=== PATIENT | female | born 1940 | race African-American/Black ===

== ENCOUNTER 2017-11-07 10:16 | Emergency (ER) | payer OTHER ==
[2017-11-07 10:30] VITALS: BP 124/74; PULSE 83; TEMP 98.3; BMI 23.1
[2017-11-07] MEDS ORDERED: predniSONE 20 MG TABLET (UD) PO ONE (10:42)
[2017-11-07] MEDS ORDERED: predniSONE 20 MG TABLET (UD) ONE (10:49)
--- NOTE | 2017-11-07 10:49 | PDOC ---
History of Present Illness - General Chief Complaint: Bite Stated Complaint: BEE STING History Source: Patient Exam Limitations: No Limitations - History of Present Illness Initial Comments: 11/07/17 10:43 77-year-old female presents to ED status post multiple bee stings to left foot and bilateral arms last week still with mild edema and discomfort. Patient states it is not bleeding for the pain and daughter decided to bring her here for further evaluation. Patient denies difficulty ambulating, fever, chills, itching or difficulty breathing. Timing/Duration: reports: week Severity: Yes: mild Location: reports: feet Respiratory Risk Factors: reports: insect bite Associated Symptoms: reports: swelling/mass/lumps Past History - Travel Traveled outside of the country in the last 30 days: No - Past Medical History Allergies/Adverse Reactions: Allergies Allergy/AdvReac Type Severity Reaction Status Date / Time No Known Allergies Allergy Verified 11/07/17 10:25 Home Medications: Ambulatory Orders NK [No Known Home Medication] 11/07/17 COPD: No DVT: No HTN: Yes Hypercholesterolemia: Yes - Suicide/Smoking/Psychosocial Hx Smoking History: Never smoked Patient Lives Alone: No Review of Systems - Review of Systems Able to Perform ROS?: No Constitutional: No: Symptoms Reported Integumentary: Yes: Other Neurological: No: Symptoms reported Endocrine: No: Symptoms Reported Hematologic/Lymphatic: No: Symptoms Reported *Physical Exam - Vital Signs Last Vital Signs Temp Pulse Resp BP Pulse Ox 98.3 F 83 19 124/74 97 11/07/17 10:26 11/07/17 10:26 11/07/17 10:26 11/07/17 10:26 11/07/17 10:26 - Physical Exam General Appearance: Yes: Nourished, Appropriately Dressed. No: Apparent Distress Vascular Pulses: Doralis-Pedis (L): 2+ Extremity: positive: Normal Capillary Refill, Normal Inspection, Normal Range of Motion, Tender (lateral aspect of left ankle), Swelling (mild 1+ pitting left ankle) Integumentary: positive: Normal Color, Warm, Other (no nicolas embeeded in skin) Neurologic: positive: Motor Strength 5/5 (ambulatory) Medical Decision Making - Medical Decision Making 11/07/17 10:47 Patient here after sustaining multiple bee stings to body last week while in the guarding. Patient states mild swelling to her left ankle has subsided moderately but continues. Patient without mild edema to the left ankle. Patient ordered for prednisone will be discharged home with 2 days of prednisone for the inflammation and toxic effect of bee stings. *DC/Admit/Observation/Transfer Diagnosis at time of Disposition: Bee sting reaction - Discharge Dispostion Disposition: HOME Condition at time of disposition: Good - Referrals Referrals: rDe De La Torre [Primary Care Provider] - - Patient Instructions Printed Discharge Instructions: DI for Insect Bites and Stings Additional Instructions: Take prednisone for the next 2 days starting tomorrow since you were given your first dose here in the ER. You may use topical antihistamines to stop the itching and inflammation also - Post Discharge Activity
== END 2017-11-07 11:06 | disposition home or self-care (01) ==
LOC: JERFT 10:16
DX: S90.862A Insect bite (nonvenomous), left foot, initial encounter (principal); W57.XXXA Bitten or stung by nonvenomous insect and other nonvenomous arthropods, initial encounter; Y93.89 Activity, other specified; Y92.9 Unspecified place or not applicable; I10 Essential (primary) hypertension
CPT/HCPCS: 99281-25

== ENCOUNTER 2021-06-19 18:53 | Emergency (ER) | payer OTHER ==
[2021-06-19 19:02] VITALS: BP 160/79; PULSE 75; TEMP 98; BMI 23.9
[2021-06-19] MEDS ORDERED: ACETAMINOPHEN 325 MG TABLET (FP) ONE (20:00)
[2021-06-19] MEDS ORDERED: ACETAMINOPHEN 325 MG TABLET (FP) PO ONE (20:02)
[2021-06-19] MEDS ORDERED: DIPHTH,PERTUSS(ACELL),TET 0.5 ML DISP.SYRIN IM ONE ×2 (20:02→20:04)
[2021-06-19 20:44] LABS: BASO % 0.6 % (0-2.0); EOS % 1.6 % (0-4.5); HEMATOCRIT 33.6 % (32.4-45.2); HEMOGLOBIN 10.4 GM/dL (10.7-15.3); LYMPH % 30.8 % (8-40); MCH 23.9 pg (25.7-33.7); MCHC 31.1 g/dl (32.0-36.0); MEAN PLT VOLUME 9.9 fl (7.5-11.1); MONO % 8.4 % (3.8-10.2); NEUT % 58.6 % (42.8-82.8); PLATELET COUNT 164 10^3/uL (134-434); RBC 4.37 M/mm3 (3.60-5.2); WHITE BLOOD COUNT 6.7 K/mm3 (4.0-10.0)
[2021-06-19 21:05] LABS: ALBUMIN 3.7 g/dl (3.4-5.0); BLOOD UREA NITROGEN 28.3 mg/dL (7-18); CALCIUM 8.6 mg/dL (8.5-10.1)
[2021-06-19 21:08] LABS: CREATININE 1.2 mg/dL (0.55-1.3)
[2021-06-19 21:11] LABS: BILIRUBIN,TOTAL 1.1 mg/dL (0.2-1); TOT PROT 7.8 g/dl (6.4-8.2)
== END 2021-06-19 22:10 | disposition home or self-care (01) ==
LOC: JER 18:53
PROC: 3E0234Z Introduction of Serum, Toxoid and Vaccine into Muscle, Percutaneous Approach (ICD-10-PCS; principal; 2021-06-19)
DX: S00.81XA Abrasion of other part of head, initial encounter (principal); W01.0XXA Fall on same level from slipping, tripping and stumbling without subsequent striking against object, initial encounter
CPT/HCPCS: 36415; 70450-TC; 70486-TC; 72125-TC; 80053; 85025; 90471; 90715; 99285-25

== ENCOUNTER 2022-09-09 22:20 | Emergency (ER) | payer OTHER ==
[2022-09-09 22:24] VITALS: RESP 17; TEMP 98.5; BMI 23.0
[2022-09-09] MEDS ORDERED: SILVER NITRATE 75% APPLIC STCK 1 PKT EACH TP ONE (23:05)
[2022-09-09] MEDS ORDERED: SILVER NITRATE 75% APPLIC STCK 1 PKT EACH ONE (23:07)
[2022-09-09 23:25] VITALS: BP 145/75; PULSE 83
[2022-09-09 23:28] LABS: BASO % 0.5 % (0-2.0); EOS % 0.4 % (0-4.5); HEMATOCRIT 35.5 % (32.4-45.2); HEMOGLOBIN 11.3 GM/dL (10.7-15.3); LYMPH % 16.2 % (8-40); MCH 24.5 pg (25.7-33.7); MCHC 31.9 g/dl (32.0-36.0); MEAN CELL VOLUME 76.9 fl (80-96); MEAN PLT VOLUME 7.7 fl (7.5-11.1); MONO % 4.6 % (3.8-10.2); NEUT % 78.3 % (42.8-82.8); PLATELET COUNT 203 10^3/uL (134-434); RBC 4.61 M/mm3 (3.60-5.2); RDW 17.4 % (11.6-15.6); WHITE BLOOD COUNT 7.2 K/mm3 (4.0-10.0)
== END 2022-09-09 23:58 | disposition home or self-care (01) ==
LOC: JERFT 22:20
DX: R04.0 Epistaxis (principal)
CPT/HCPCS: 36415; 85025; 99283-25

== ENCOUNTER 2022-09-18 09:31 | Observation (INO) | payer OTHER ==
[2022-09-18 11:06] LABS: BASO % 0.9 % (0-2.0); HEMATOCRIT 31.1 % (32.4-45.2); HEMOGLOBIN 9.6 GM/dL (10.7-15.3); LYMPH % 31.5 % (8-40); MCH 24.3 pg (25.7-33.7); MCHC 30.9 g/dl (32.0-36.0); MEAN CELL VOLUME 78.8 fl (80-96); MONO % 11.9 % (3.8-10.2); NEUT % 51.7 % (42.8-82.8); PLATELET COUNT 202 10^3/uL (134-434); RBC 3.94 M/mm3 (3.60-5.2); WHITE BLOOD COUNT 4.7 K/mm3 (4.0-10.0)
[2022-09-18 11:25] LABS: POTASSIUM 4.1 mmol/L (3.5-5.1)
[2022-09-18 11:26] LABS: CALCIUM 9.3 mg/dL (8.5-10.1)
[2022-09-18 11:27] LABS: ALBUMIN 3.1 g/dl (3.4-5.0); BLOOD UREA NITROGEN 21.6 mg/dL (7-18)
[2022-09-18 11:30] LABS: CREATININE 1.3 mg/dL (0.55-1.3)
[2022-09-18 11:31] LABS: TOT PROT 7.1 g/dl (6.4-8.2)
[2022-09-18 11:35] LABS: N-TERMINAL BNP 283.6 pg/ml (5-450)
[2022-09-18 11:54] LABS: ERYTHROCYTE SEDIMENTATION RATE 44 mm/hr (0-30)
[2022-09-18] MEDS ORDERED: CLINDAMYCIN 600MG PREMIX IVPB 600 MG/50 ML BAG IVPB ONE ×2 (13:03→13:11)
[2022-09-18] MEDS ORDERED: ENOXAPARIN NA (PORCINE) 40 MG/0.4 ML DISP.SYRIN SQ ONE (13:43)
[2022-09-18] MEDS ORDERED: ENOXAPARIN NA (PORCINE) 60 MG/0.6 ML DISP.SYRIN SQ ONE (13:50)
[2022-09-18 13:51] LABS: PH,URINE 5.5 (5.0-8.0); URINE APPEARANCE CLEAR; URINE BILIRUBIN NEGATIVE (NEGATIVE); URINE COLOR YELLOW; URINE GLUCOSE (UA) NEGATIVE (NEGATIVE); URINE KETONE NEGATIVE (NEGATIVE); URINE LEUK ESTERASE NEGATIVE (NEGATIVE); URINE NITRITE NEGATIVE (NEGATIVE); URINE PROTEIN NEGATIVE (NEGATIVE); URINE UROBILINOGEN 0.2 mg/dL (0.2-1.0)
[2022-09-18 14:45] LABS: INR 1.18 (0.83-1.09); PROTHROMBIN TIME (PATIENT) 13.7 SEC (9.7-13.0)
[2022-09-18 14:47] LABS: ACTIVATED PTT 29.7 SECONDS (25.2-36.5)
[2022-09-18] MEDS ORDERED: traMADol HCL 50 MG TABLET PO PRN (16:07)
[2022-09-18] MEDS ORDERED: ceFAZolin SODIUM 1 GM VIAL ONE (18:29)
[2022-09-18] MEDS: CEFAZOLIN 1 GM in DEXTROSE 5%-WATER - 50 ML IVPB SCH (18:42)
[2022-09-18] MEDS: ATORVASTATIN CA 20 MG TABLET (FP) PO SCH (21:16)
[2022-09-18] MEDS: APIXABAN 5 MG TABLET PO SCH (21:16)
[2022-09-18] MEDS: GABAPENTIN 300 MG CAPSULE PO SCH (21:16)
[2022-09-19] MEDS: CEFAZOLIN 1 GM in DEXTROSE 5%-WATER - 50 ML IVPB SCH ×3 (01:15→17:56)
[2022-09-19 03:24] VITALS: BMI 24.8
[2022-09-19] MEDS: metoPROLOL SUCCINATE 25 MG TAB.SR.24H (FP) PO SCH (10:29)
[2022-09-19] MEDS: GABAPENTIN 300 MG CAPSULE PO SCH ×2 (10:29→22:35)
[2022-09-19] MEDS: PANTOPRAZOLE 40 MG TABLET PO SCH (10:29)
[2022-09-19] MEDS: LOSARTAN POTASSIUM 50 MG TABLET PO SCH (10:29)
[2022-09-19] MEDS: APIXABAN 5 MG TABLET PO SCH ×2 (10:29→22:35)
[2022-09-19] MEDS: amLODIPine BESYLATE 10 MG TABLET (FP) PO SCH (10:29)
[2022-09-19] MEDS: ATORVASTATIN CA 20 MG TABLET (FP) PO SCH (22:35)
[2022-09-20] MEDS: CEFAZOLIN 1 GM in DEXTROSE 5%-WATER - 50 ML IVPB SCH ×3 (02:27→17:24)
[2022-09-20 08:23] LABS: BASO % 0.7 % (0-2.0); EOS % 6.1 % (0-4.5); HEMATOCRIT 28.1 % (32.4-45.2); LYMPH % 30.2 % (8-40); MCH 24.4 pg (25.7-33.7); MCHC 31.9 g/dl (32.0-36.0); MEAN CELL VOLUME 76.5 fl (80-96); MEAN PLT VOLUME 8.3 fl (7.5-11.1); MONO % 10.7 % (3.8-10.2); NEUT % 52.3 % (42.8-82.8); PLATELET COUNT 197 10^3/uL (134-434); RBC 3.68 M/mm3 (3.60-5.2); RDW 16.9 % (11.6-15.6); WHITE BLOOD COUNT 3.6 K/mm3 (4.0-10.0)
[2022-09-20 08:39] LABS: POTASSIUM 3.5 mmol/L (3.5-5.1)
[2022-09-20 08:42] LABS: BLOOD UREA NITROGEN 14.9 mg/dL (7-18); CALCIUM 8.8 mg/dL (8.5-10.1)
[2022-09-20 08:46] LABS: CREATININE 0.9 mg/dL (0.55-1.3)
[2022-09-20 08:53] LABS: ALBUMIN 2.4 g/dl (3.4-5.0)
[2022-09-20] MEDS: metoPROLOL SUCCINATE 25 MG TAB.SR.24H (FP) PO SCH (10:52)
[2022-09-20] MEDS: LOSARTAN POTASSIUM 50 MG TABLET PO SCH (10:52)
[2022-09-20] MEDS: PANTOPRAZOLE 40 MG TABLET PO SCH (10:52)
[2022-09-20] MEDS: APIXABAN 5 MG TABLET PO SCH ×2 (10:53→21:10)
[2022-09-20] MEDS: GABAPENTIN 300 MG CAPSULE PO SCH ×2 (10:53→21:10)
[2022-09-20] MEDS: amLODIPine BESYLATE 10 MG TABLET (FP) PO SCH (10:53)
[2022-09-20] MEDS: ATORVASTATIN CA 20 MG TABLET (FP) PO SCH (21:10)
[2022-09-21] MEDS: CEFAZOLIN 1 GM in DEXTROSE 5%-WATER - 50 ML IVPB SCH ×3 (01:02→18:37)
[2022-09-21] MEDS: PANTOPRAZOLE 40 MG TABLET PO SCH (09:22)
[2022-09-21] MEDS: LOSARTAN POTASSIUM 50 MG TABLET PO SCH (09:22)
[2022-09-21] MEDS: metoPROLOL SUCCINATE 25 MG TAB.SR.24H (FP) PO SCH (09:23)
[2022-09-21] MEDS: APIXABAN 5 MG TABLET PO SCH ×2 (09:23→21:14)
[2022-09-21] MEDS: GABAPENTIN 300 MG CAPSULE PO SCH ×2 (09:23→21:14)
[2022-09-21] MEDS: amLODIPine BESYLATE 10 MG TABLET (FP) PO SCH (09:23)
[2022-09-21 09:41] LABS: BASO % 0.7 % (0-2.0); EOS % 4.3 % (0-4.5); HEMOGLOBIN 10.2 GM/dL (10.7-15.3); LYMPH % 26.3 % (8-40); MCH 24.5 pg (25.7-33.7); MCHC 31.9 g/dl (32.0-36.0); MEAN CELL VOLUME 76.9 fl (80-96); MEAN PLT VOLUME 8.7 fl (7.5-11.1); MONO % 7.6 % (3.8-10.2); NEUT % 61.1 % (42.8-82.8); PLATELET COUNT 228 10^3/uL (134-434); RBC 4.16 M/mm3 (3.60-5.2); RDW 17.2 % (11.6-15.6); WHITE BLOOD COUNT 4.7 K/mm3 (4.0-10.0)
[2022-09-21] MEDS: ATORVASTATIN CA 20 MG TABLET (FP) PO SCH (21:14)
[2022-09-22] MEDS: CEFAZOLIN 1 GM in DEXTROSE 5%-WATER - 50 ML IVPB SCH ×3 (01:35→17:35)
[2022-09-22] MEDS: amLODIPine BESYLATE 10 MG TABLET (FP) PO SCH (09:57)
[2022-09-22] MEDS: PANTOPRAZOLE 40 MG TABLET PO SCH (09:58)
[2022-09-22] MEDS: metoPROLOL SUCCINATE 25 MG TAB.SR.24H (FP) PO SCH (09:58)
[2022-09-22] MEDS: GABAPENTIN 300 MG CAPSULE PO SCH ×2 (09:58→21:30)
[2022-09-22] MEDS: APIXABAN 5 MG TABLET PO SCH ×2 (09:58→21:30)
[2022-09-22] MEDS: LOSARTAN POTASSIUM 50 MG TABLET PO SCH (09:58)
[2022-09-22] MEDS: ATORVASTATIN CA 20 MG TABLET (FP) PO SCH (21:30)
[2022-09-23] MEDS: CEFAZOLIN 1 GM in DEXTROSE 5%-WATER - 50 ML IVPB SCH ×2 (02:01→10:32)
[2022-09-23] MEDS: GABAPENTIN 300 MG CAPSULE PO SCH ×2 (10:32→21:32)
[2022-09-23] MEDS: metoPROLOL SUCCINATE 25 MG TAB.SR.24H (FP) PO SCH (10:32)
[2022-09-23] MEDS: PANTOPRAZOLE 40 MG TABLET PO SCH (10:32)
[2022-09-23] MEDS: amLODIPine BESYLATE 10 MG TABLET (FP) PO SCH (10:32)
[2022-09-23] MEDS: LOSARTAN POTASSIUM 50 MG TABLET PO SCH (10:32)
[2022-09-23] MEDS: APIXABAN 5 MG TABLET PO SCH ×2 (10:33→21:32)
[2022-09-23] MEDS: ATORVASTATIN CA 20 MG TABLET (FP) PO SCH (21:32)
[2022-09-23] MEDS: CEPHALEXIN MONOHYDRATE 500 MG CAPSULE (UD) PO SCH (21:32)
[2022-09-24] MEDS: PANTOPRAZOLE 40 MG TABLET PO SCH (09:01)
[2022-09-24] MEDS: GABAPENTIN 300 MG CAPSULE PO SCH ×2 (09:01→21:09)
[2022-09-24] MEDS: LOSARTAN POTASSIUM 50 MG TABLET PO SCH (09:01)
[2022-09-24] MEDS: APIXABAN 5 MG TABLET PO SCH ×2 (09:01→21:09)
[2022-09-24] MEDS: CEPHALEXIN MONOHYDRATE 500 MG CAPSULE (UD) PO SCH ×2 (09:02→21:09)
[2022-09-24] MEDS: amLODIPine BESYLATE 10 MG TABLET (FP) PO SCH (09:02)
[2022-09-24] MEDS: metoPROLOL SUCCINATE 25 MG TAB.SR.24H (FP) PO SCH (09:02)
[2022-09-24 20:40] VITALS: RESP 17
[2022-09-24] MEDS: ATORVASTATIN CA 20 MG TABLET (FP) PO SCH (21:09)
[2022-09-24 22:23] VITALS: BP 146/77; PULSE 80; TEMP 98.8
== END 2022-09-24 22:30 | disposition home or self-care (01) ==
LOC: JER 09:31 → JERBED 14:36 → INTOOBSV 14:36 → J5S 19:13
PROVIDERS: ADMIT Family Medicine; ATTEND Family Medicine
PROC: 3E03329 Introduction of Other Anti-infective into Peripheral Vein, Percutaneous Approach (ICD-10-PCS; principal; 2022-09-18)
PROC: 3E023GC Introduction of Other Therapeutic Substance into Muscle, Percutaneous Approach (ICD-10-PCS; 2022-09-18)
DX: I82.409 Acute embolism and thrombosis of unspecified deep veins of unspecified lower extremity (principal); L03.90 Cellulitis, unspecified; I10 Essential (primary) hypertension; E78.5 Hyperlipidemia, unspecified
CPT/HCPCS: 36415; 71045-TC-FY; 80053; 81003; 83880; 84484; 85025; 85610; 85651; 85730; 86140; 87040; 87081; 87086; 93005; 93010; 93970-TC; 96365; 96367; 96372; 97116-GP; 97161-GP; 99285-25; G0378